=== PATIENT | female | born 1990 | race Caucasian/White ===

== ENCOUNTER → 2018-01-08 | Outpatient (CLI) | payer BC ==
[~2018-01-08] MED LIST: ACHD5005 PO; CODE-54 PO; IBUP-1773 PO; LABE200T3 PO; NITR-65 PO; PREN1COM PO
--- NOTE | 2018-01-08 15:27 | Diagnostic Imaging Report ---
CLINICAL INDICATION: Patient with left-sided sciatica pain. Patient woke up long time ago with back spasm. Repetitive bending. EXAM: X-ray of the lumbar spine, three views. COMPARISON: X-ray of the lumbar spine dated 06/09/2009. FINDINGS: There is no acute lumbar spine fracture or dislocation. Intervertebral disc heights are well maintained. There are no significant degenerative changes seen. The sacroiliac joints, sacrum, and visualized portions of the pelvis are unremarkable. IMPRESSION: Unremarkable x-ray of the lumbar spine. Dictated by: Dictated on workstation # [id number]
== END ==
LOC: RAD 14:17
PROVIDERS: ATTEND Nurse Practitioner Family
DX: M54.42 Lumbago with sciatica, left side (principal)
CPT/HCPCS: 72100

== ENCOUNTER 2018-09-01 16:47 | Emergency (ER) | payer BC ==
[~2018-09-01] VITALS: Ht 157.5 cm; Wt 59.9 kg
[~2018-09-01 16:47] MED LIST changes: -LABE200T3 PO; +LABE200T7 PO
[2018-09-01 17:25] VITALS: BP 142/93
[2018-09-01] MEDS ORDERED: PROCHLORPERAZINE 10 MG/2ML INJ (COMPAZINE) IV ONE (17:45)
[2018-09-01] MEDS ORDERED: diphenhydrAMINE 50 MG/ML INJ (BENADRYL) IVP ONE (17:45)
[2018-09-01] MEDS ORDERED: NS IV 1000 ML 1,000 ML IV SCH (17:45)
--- NOTE | 2018-09-01 17:59 | ED Headache ---
General Chief Complaint: Head/Cervical Problems Stated Complaint: 14 WKS PREG/MIGRAINE/VOMITING Source: patient Exam Limitations: no limitations History of Present Illness Date Seen by Provider: Sep 01, 2018 Time Seen by Provider: 17:55 Initial Comments To ER with reports of being 14 weeks , headache and vomiting. She does have a history of migraines and typically vomits with these. Timing/Duration: other (3 days) Severity/Quality: moderate Location: global Prior Headaches/Recent Trauma: occasional headaches Associated Symptoms: No confusion, No fever/chills Allergies and Home Medications Allergies Coded Allergies: No Known Drug Allergies (Unverified , 10/22/14) Home Medications Hydrocodone Bit/Acetaminophen 1 Each Tablet, 1-2 TAB PO Q6H PRN for PAIN Prescribed by: MYKEL RODRIGUEZ on 05/09/15 1018 Ibuprofen 600 Mg Tablet, 600 MG PO Q6H Prescribed by: MYKEL RODRIGUEZ on 05/09/15 1018 Labetalol HCl 200 Mg Tablet, 200 MG PO BID Prescribed by: MYKEL RODRIGUEZ on 05/09/15 1018 Prenat Vit Comb.10/Iron/Fa/Dha 1 Each Combo..pkg, 1 TAB PO DAILY, (Reported) Patient Home Medication List Home Medication List Reviewed: Yes Review of Systems Review of Systems Constitutional: see HPI Eyes: No Symptoms Reported Ears, Nose, Mouth, Throat: no symptoms reported Respiratory: no symptoms reported Cardiovascular: no symptoms reported Genitourinary: no symptoms reported Musculoskeletal: no symptoms reported Skin: no symptoms reported Psychiatric/Neurological: Headache Past Vgjrsqf-Upllsr-Ipidyr Hx Patient Social History Recent Foreign Travel: No Contact w/Someone Who Travel: No Immunizations Up To Date Date of Influenza Vaccine: Jun 06, 2014 Past Medical History Reproductive Disorders: No Sexually Transmitted Disease: No HIV/AIDS: No Kidney Stones Adverse Reaction/Blood Tranf: No Family Medical History FH: lung cancer paternal grandfather Jamie thyroiditis paternal grandmother No Pertinent Family Hx Physical Exam Vital Signs Capillary Refill : Height, Weight, BMI Height: 5'2.00" Weight: 250lbs. oz. 113.602176ec; BMI Method:Stated General Appearance: WD/WN, no apparent distress HEENT: PERRL/EOMI, normal ENT inspection, TMs normal Neck: non-tender, full range of motion Cardiovascular: regular rate, rhythm, no murmur Respiratory: no respiratory distress, no accessory muscle use Gastrointestinal: normal bowel sounds, non tender Extremities: normal range of motion, non-tender Psychiatric: alert, oriented x 3 Crainal Nerves: normal hearing, normal speech, PERRL Skin: normal color, warm/dry Progress/Results/Core Measures Results/Orders My Orders Orders - JAYDEN TAVERA APRN Iv Heplock-Insert (Order) (09/01/18 17:41) Diphenhydramine Injection (Benadryl Inje (09/01/18 17:45) Prochlorperazine Injection (Compazine In (09/01/18 17:45) Ns Iv 1000 Ml (Sodium Chloride 0.9%) (09/01/18 17:45) Medications Given in ED Current Medications Medications Dose Ordered Sig/Rosa Route Start Time Stop Time Status Last Admin Dose Admin Diphenhydramine HCl 25 mg ONCE ONCE IVP 09/01/18 17:45 09/01/18 17:46 DC 09/01/18 17:50 25 MG Prochlorperazine Edisylate 5 mg ONCE ONCE IV 09/01/18 17:45 09/01/18 17:46 DC 09/01/18 17:50 5 MG Departure Communication (Admissions) 1812- patient is not very agitated stating that she wants her IV out because she is sick of it and she wants to leave. Impression Primary Impression: Left against medical advice Additional Impression: Headache Disposition: 07 AGAINST MEDICAL ADVICE Condition: Against Medical Advice Departure-Patient Inst. Referrals: MYKEL RODRIGUEZ DO (PCP) Primary Care Physician LUMA JAUREGUI MD (Family) Primary Care Physician JAYDEN TAVERA APRN Sep 01, 2018 17:59
--- NOTE | 2018-09-01 18:15 | NUR ---
Answered pt's call light. Pt very agitated and stated pt just wanted IV out of arm and wanted to leave. Demar Britt notified.
== END 2018-09-01 18:14 | disposition left against medical advice (07) ==
LOC: EDUNIT# 16:47 → ER 16:48
DX: O26.892 Other specified pregnancy related conditions, second trimester (principal); R51 Headache; Z3A.14 14 weeks gestation of pregnancy; Z87.442 Personal history of urinary calculi; Z86.69 Personal history of other diseases of the nervous system and sense organs; Z80.1 Family history of malignant neoplasm of trachea, bronchus and lung
CPT/HCPCS: 96374; 96375; 99281

== ENCOUNTER → 2018-10-08 | Outpatient (CLI) | payer BC ==
--- NOTE | 2018-10-08 13:59 | Diagnostic Imaging Report ---
INDICATION: survey. TECHNIQUE: Multiple real-time grayscale images were obtained over the gravid uterus. COMPARISON: None. FINDINGS: There is a single live fetus in a transverse presentation, head to maternal right. Placenta is posterior. Amniotic fluid volume is normal. heart rate was recorded at 144 beats per minute. Cervical length is 6.3 cm. survey demonstrates kidneys, bladder and stomach to be unremarkable. The brain is unremarkable. There is a four-chamber heart. There is a three-vessel cord with normal insertion. Visualized spine is unremarkable. Biometrical measurements are as follows: Biparietal 4.39 cm, age 19 weeks 2 days. Head circumference 17.29 cm, age 19 weeks 6 days. Abdominal circumference 14.70 cm, age 20 weeks 0 days. Femur length 3.38 cm, age 20 weeks 5 days. Sonographic estimate age: 20 weeks 0 days. Sonographic estimated date of delivery: 02/25/2019. Estimated Weight: 338 gm (+/- 49 gm). LMP percentile: 65%. heart rate: 144 beats per minute. number: 1 of 1. IMPRESSION: Single live IUP 20 weeks 0 days gestational age. Estimated date of confinement sonographically is 02/25/2019. Dictated by: Dictated on workstation # [id number]
== END ==
LOC: RAD 12:02
PROVIDERS: ATTEND Obstetrics & Gynecology
DX: Z36.89 Encounter for other specified antenatal screening (principal); Z3A.20 20 weeks gestation of pregnancy
CPT/HCPCS: 76805

== ENCOUNTER 2018-12-20 11:51 | Emergency (ER) | payer BC ==
[~2018-12-20] VITALS: Ht 157.5 cm; Wt 104.3 kg
[2018-12-20] MEDS ORDERED: POTA20TA8 (12:19)
[2018-12-20] MEDS ORDERED: BUTA1CAP41 (12:19)
[2018-12-20] MEDS ORDERED: OMEP20CA12 PO (12:20)
[2018-12-20] MEDS ORDERED: LACTATED RINGERS 1,000 ML IV ONE (12:21)
[2018-12-20 12:27] LABS: BASOPHILS # (AUTO) 0.1 10^3/uL (0.0-0.1); BASOPHILS % (AUTO) 0 % (0-10); EOSINOPHILS # (AUTO) 0.4 10^3/uL (0.0-0.3); EOSINOPHILS % (AUTO) 3 % (0-10); HEMATOCRIT 41 % (35-52); HEMOGLOBIN 14.4 G/DL (11.5-16.0); LYMPHOCYTES # (AUTO) 3.2 X 10^3 (1.0-4.0); LYMPHOCYTES % (AUTO) 22 % (12-44); MEAN CORPUSCULAR HEMOGLOBIN 31 PG (25-34); MEAN CORPUSCULAR HGB CONC 35 G/DL (32-36); MEAN CORPUSCULAR VOLUME 89 FL (80-99); MEAN PLATELET VOLUME 10.6 FL (7.4-10.4); MONOCYTES # (AUTO) 0.9 X 10^3 (0.0-1.0); MONOCYTES % (AUTO) 6 % (0-12); NEUTROPHILS # (AUTO) 9.9 X 10^3 (1.8-7.8); NEUTROPHILS % (AUTO) 69 % (42-75); PLATELET COUNT 296 10^3/uL (130-400); RED CELL DISTRIBUTION WIDTH 13.4 % (10.0-14.5); WHITE BLOOD COUNT 14.4 10^3/uL (4.3-11.0)
[2018-12-20] MEDS ORDERED: ONDANSETRON 4 MG/2 ML (SDV) Z0FRAN IVP ONE (12:30)
[2018-12-20 12:37] LABS: ALANINE AMINOTRANSFERASE 12 U/L (0-55); ALBUMIN 3.7 GM/DL (3.2-4.5); ALKALINE PHOSPHATASE 68 U/L (40-136); BILIRUBIN,TOTAL 0.4 MG/DL (0.1-1.0); BUN/CREATININE RATIO 9; CALCIUM 9.8 MG/DL (8.5-10.1); CARBON DIOXIDE 20 MMOL/L (21-32); CHLORIDE 107 MMOL/L (98-107); CREATININE SERUM 0.54 MG/DL (0.60-1.30); GFR ESTIMATED > 60; GLUCOSE 73 MG/DL (70-105); MAGNESIUM 1.9 MG/DL (1.8-2.4); POTASSIUM 4.1 MMOL/L (3.6-5.0); SODIUM 136 MMOL/L (135-145); TOTAL PROTEIN 6.7 GM/DL (6.4-8.2)
[2018-12-20 12:44] LABS: BILIRUBIN,URINE NEGATIVE (NEGATIVE); CLARITY,URINE CLEAR; COLOR,URINE YELLOW; GLUCOSE, URINE (UA) NEGATIVE (NEGATIVE); KETONES,URINE NEGATIVE (NEGATIVE); LEUKOCYTE ESTERASE ,URINE 1+ (NEGATIVE); NITRITE,URINE NEGATIVE (NEGATIVE); PH,URINE 7 (5-9); PROTEIN,URINE 2+ (NEGATIVE); UROBILINOGEN,URINE NORMAL (NORMAL)
[2018-12-20 12:55] LABS: BACTERIA,URINE TRACE /HPF; WBC,URINE 0-2 /HPF
[2018-12-20 13:05] LABS: BASOPHILS % (MANUAL) 1 %; EOSINOPHILS % (MANUAL) 1 %; LYMPHOCYTES % (MANUAL) 12 %; MONOCYTES % (MANUAL) 3 %; NEUTROPHILS % (MANUAL) 71 %; RBC MORPH NORMAL; REACTIVE LYMPHOCYTES 12 %
--- NOTE | 2018-12-20 14:13 | ED General ---
General Chief Complaint: Dizziness/Syncope Stated Complaint: SYNCOPE Nursing Triage Note: PT PRESENTS TO ED WITH COMPLAINTS OF NEAR SYNCOPAL EPISODE AT WORK THIS AFTERNOON. PT STATES SHE HAD AN EPISODE OF DIAHRREA AND BECAME DIAPHORETIC AND NAUSEATED. PT STATES SHE HAS HAD SIMILAR EPISODES WHEN HER POTASSIUM GETS LOW. PT IS ON PRESCRIPTION POTASSIUM PILLS. PT DENIES LOC BUT REPORTS FEELING FATIGUED. PT IS APROX 30 WEEKS PREG. Nursing Sepsis Screen: No Definite Risk Source of Information: Patient Exam Limitations: No Limitations History of Present Illness Date Seen by Provider: Dec 20, 2018 Time Seen by Provider: 12:20 Initial Comments This 28-year-old young lady at approximately 30 weeks gestational age presents to the emergency room after having a near syncopal episode at work. The episode started with abdominal discomfort and diarrhea as well as nausea. She then became diaphoretic and lightheaded. Near-syncope followed. She denies loss of consciousness. She reports having similar episodes in the past related to hypokalemia. She is presently taking daily potassium supplements. Her service liaison representative is Dr. Rodriguez. Allergies and Home Medications Allergies Coded Allergies: No Known Drug Allergies (Unverified , 10/22/14) Home Medications Prenat Vit Comb.10/Iron/Fa/Dha 1 Each Combo..pkg, 1 TAB PO DAILY, (Reported) Patient Home Medication List Home Medication List Reviewed: Yes Review of Systems Review of Systems Constitutional: no symptoms reported EENTM: no symptoms reported Respiratory: no symptoms reported Cardiovascular: see HPI Gastrointestinal: see HPI Genitourinary: see HPI : Yes Musculoskeletal: no symptoms reported Skin: no symptoms reported Hematologic/Lymphatic: See HPI Immunological/Allergic: no symptoms reported Past Qafgzuw-Rrawfl-Mhcsru Hx Past Med/Social Hx: Reviewed and Corrections made Patient Social History Alcohol Use: Denies Use Recreational Drug Use: No Smoking Status: Never a Smoker Recent Foreign Travel: No Contact w/Someone Who Travel: No Recent Infectious Disease Expo: No Physical Abuse: No Sexual Abuse: No Mistreated: No Fear: No Immunizations Up To Date Date of Influenza Vaccine: Jun 06, 2014 Past Medical History Surgeries: Yes Section Respiratory: No Cardiac: No Neurological: No Reproductive Disorders: No Sexually Transmitted Disease: No HIV/AIDS: No Genitourinary: Yes Kidney Stones Gastrointestinal: Yes Gastroesophageal Reflux Musculoskeletal: No Endocrine: Yes (Hypokalemia) Cancer: No Psychosocial: No Integumentary: No Blood Disorders: No (LOW POTASSIUM) Adverse Reaction/Blood Tranf: No Family Medical History FH: lung cancer paternal grandfather Jamie thyroiditis paternal grandmother No Pertinent Family Hx Physical Exam Vital Signs Vital Signs - First Documented 12/20/18 12:09 Temp 96.5 Pulse 96 Resp 20 B/P (MAP) 129/90 (103) Pulse Ox 96 O2 Delivery Room Air Capillary Refill : Less Than 3 Seconds Height, Weight, BMI Height: 5'2.00" Weight: 230lbs. oz. 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 Norm as Tested Skin: Normal Color, Warm/Dry Progress/Results/Core Measures Suspected Sepsis Recent Fever Within 48 Hours: No Infection Criteria Present: None New/Unexplained Altered Menta: No Sepsis Screen: No Definite Risk SIRS Temperature:96.5 Pulse: 96 Respiratory Rate: 20 Laboratory Tests 12/20/18 12:00: White Blood Count 14.4H Blood Pressure 129 /90 Mean: 103 Laboratory Tests 12/20/18 12:00: Creatinine 0.54L, Platelet Count 296, Total Bilirubin 0.4 Results/Orders Lab Results Laboratory Tests Test 12/20/18 12:00 12/20/18 12:01 12/20/18 12:28 Range/Units White Blood Count 14.4 H 4.3-11.0 10^3/uL Red Blood Count 4.63 4.35-5.85 10^6/uL Hemoglobin 14.4 11.5-16.0 G/DL Hematocrit 41 35-52 % Mean Corpuscular Volume 89 80-99 FL Mean Corpuscular Hemoglobin 31 25-34 PG Mean Corpuscular Hemoglobin Concent 35 32-36 G/DL Red Cell Distribution Width 13.4 10.0-14.5 % Platelet Count 296 130-400 10^3/uL Mean Platelet Volume 10.6 H 7.4-10.4 FL Neutrophils (%) (Auto) 69 42-75 % Lymphocytes (%) (Auto) 22 12-44 % Monocytes (%) (Auto) 6 0-12 % Eosinophils (%) (Auto) 3 0-10 % Basophils (%) (Auto) 0 0-10 % Neutrophils # (Auto) 9.9 H 1.8-7.8 X 10^3 Lymphocytes # (Auto) 3.2 1.0-4.0 X 10^3 Monocytes # (Auto) 0.9 0.0-1.0 X 10^3 Eosinophils # (Auto) 0.4 H 0.0-0.3 10^3/uL Basophils # (Auto) 0.1 0.0-0.1 10^3/uL Neutrophils % (Manual) 71 % Lymphocytes % (Manual) 12 % Monocytes % (Manual) 3 % Eosinophils % (Manual) 1 % Basophils % (Manual) 1 % Reactive Lymphocytes 12 % Blood Morphology Comment NORMAL Sodium Level 136 135-145 MMOL/L Potassium Level 4.1 3.6-5.0 MMOL/L Chloride Level 107 98-107 MMOL/L Carbon Dioxide Level 20 L 21-32 MMOL/L Anion Gap 9 5-14 MMOL/L Blood Urea Nitrogen 5 L 7-18 MG/DL Creatinine 0.54 L 0.60-1.30 MG/DL Estimat Glomerular Filtration Rate > 60 BUN/Creatinine Ratio 9 Glucose Level 73 70-105 MG/DL Calcium Level 9.8 8.5-10.1 MG/DL Corrected Calcium 10.0 8.5-10.1 MG/DL Magnesium Level 1.9 1.8-2.4 MG/DL Total Bilirubin 0.4 0.1-1.0 MG/DL Aspartate Amino Transf (AST/SGOT) 20 5-34 U/L Alanine Aminotransferase (ALT/SGPT) 12 0-55 U/L Alkaline Phosphatase 68 40-136 U/L C-Reactive Protein High Sensitivity 0.60 H 0.00-0.50 MG/DL Total Protein 6.7 6.4-8.2 GM/DL Albumin 3.7 3.2-4.5 GM/DL Glucometer 76 70-110 MG/DL Urine Color YELLOW Urine Clarity CLEAR Urine pH 7 5-9 Urine Specific [place] 1.010 L 1.016-1.022 Urine Protein 2+ H NEGATIVE Urine Glucose (UA) NEGATIVE NEGATIVE Urine Ketones NEGATIVE NEGATIVE Urine Nitrite NEGATIVE NEGATIVE Urine Bilirubin NEGATIVE NEGATIVE Urine Urobilinogen NORMAL NORMAL MG/DL Urine Leukocyte Esterase 1+ H NEGATIVE Urine RBC (Auto) NEGATIVE NEGATIVE Urine RBC NONE /HPF Urine WBC 0-2 /HPF Urine Squamous Epithelial Cells 2-5 /HPF Urine Crystals NONE /LPF Urine Bacteria TRACE /HPF Urine Casts NONE /LPF Urine Mucus NEGATIVE /LPF Urine Culture Indicated NO My Orders Orders - MORE HIGHTOWER MD Cbc With Automated Diff (12/20/18 12:21) Comprehensive Metabolic Panel (12/20/18 12:21) Magnesium (12/20/18 12:21) Ua Culture If Indicated (12/20/18 12:21) Ed Iv/Invasive Line Start (12/20/18 12:21) Lactated Ringers (Lr 1000 Ml Iv Solution (12/20/18 12:21) Ondansetron Injection (Zofran Injectio (12/20/18 12:30) General/Regular (12/20/18 Lunch) Manual Differential (12/20/18 12:00) Hs C Reactive Protein (12/20/18 13:06) Medications Given in ED Current Medications Medications Dose Ordered Sig/Rosa Route Start Time Stop Time Status Last Admin Dose Admin Lactated Ringer's 1,000 ml @ 0 mls/hr Q0M ONCE IV 12/20/18 12:21 12/20/18 12:22 DC 12/20/18 12:39 0 MLS/HR Ondansetron HCl 4 mg ONCE ONCE IVP 12/20/18 12:30 12/20/18 12:31 DC 12/20/18 12:36 4 MG Vital Signs/I&O 12/20/18 12/20/18 12:09 14:22 Temp 96.5 97.9 Pulse 96 92 Resp 20 20 B/P (MAP) 129/90 (103) 119/75 (90) Pulse Ox 96 98 O2 Delivery Room Air Capillary Refill : Less Than 3 Seconds Blood Pressure Mean: 103 Point of Care Testing Finger Stick Blood Glucose: 151 Progress Note : Progress Note Patient's blood sugar was marginal in the 70s. She was given orange juice to drink. She was hydrated with 500 mL normal saline by EMS followed by 1 L of LR in the emergency room. Lab work was grossly unremarkable except for leukocytosis. CRP however was low. She was feeling well and was dismissed home. I'm suspicious her near syncopal episode may have been from a vasovagal response triggered by the diarrhea. Departure Impression Primary Impression: Diarrhea Qualified Codes: R19.7 - Diarrhea, unspecified Additional Impressions: Lightheadedness Nausea alone Disposition: 01 HOME, SELF-CARE Condition: Improved Departure-Patient Inst. Decision time for Depature: 14:00 Referrals: NO,LOCAL PHYSICIAN (PCP/Family) Primary Care Physician Patient Instructions: Vasovagal Response Add. Discharge Instructions: Drink plenty of clear liquids. Follow-up with Dr. Rodriguez at your next scheduled appointment and discuss your episodes of diarrhea and lightheadedness. The lightheadedness and shortness of breath that occurred after the diarrhea may have been a vasovagal response. Please read the attached handout. Return to care if you have worsening symptoms. Eat a well-balanced diet with frequent healthy snacks and stay well-hydrated. All discharge instructions reviewed with patient and/or family. Voiced understanding. Copy Copies To 1: MYKEL RODRIGUEZ JOSHUA T MD Dec 20, 2018 14:13
[2018-12-20 14:22] VITALS: BP 119/75
== END 2018-12-20 14:21 | disposition home or self-care (01) ==
LOC: ER 11:51
DX: O26.893 Other specified pregnancy related conditions, third trimester (principal); R19.7 Diarrhea, unspecified; R42 Dizziness and giddiness; R11.0 Nausea; O99.613 Diseases of the digestive system complicating pregnancy, third trimester; K21.9 Gastro-esophageal reflux disease without esophagitis; Z3A.30 30 weeks gestation of pregnancy; Z98.890 Other specified postprocedural states; Z87.442 Personal history of urinary calculi; Z80.1 Family history of malignant neoplasm of trachea, bronchus and lung
CPT/HCPCS: 36415; 80053; 81000; 82962; 83735; 85007; 85027; 86141

== ENCOUNTER 2019-02-11 11:59 | Outpatient (CLI) | payer BC ==
[~2019-02-11] VITALS: Ht 157.5 cm; Wt 109.0 kg
[~2019-02-11 11:59] MED LIST changes: +BUTA1CAP41; +OMEP20CA12 PO; +POTA20TA8 PO
[2019-02-11] MEDS ORDERED: BUTA1CAP41 PO (12:11)
[2019-02-11] MEDS ORDERED: PREN1TAB79 PO (12:11)
[2019-02-11 12:15] VITALS: BP 129/84
== END 2019-02-11 12:35 | disposition home or self-care (01) ==
LOC: PREOP 11:59
PROVIDERS: ATTEND Obstetrics & Gynecology
DX: Z01.818 Encounter for other preprocedural examination (principal)
CPT/HCPCS: 87081

== ENCOUNTER 2019-02-19 06:00 | Inpatient (IN) | payer BC ==
[~2019-02-19] VITALS: Ht 157.5 cm; Wt 110.3 kg
[2019-02-19] VITALS (14 sets, daily range): BP systolic 102–205; BP diastolic 66–96
[~2019-02-19 06:00] MED LIST changes: +BUTA1CAP41 PO; +CITRIC ACID/SOB CIT (BICITRA) 30 ML UDC ONE; +FAMOTIDINE 20MG/2ML IV (PEPCID) ONE; +LACTATED RINGERS 1,000 ML IV ONE; +METOCLOPRAMIDE INJ 10 MG/2 ML (REGLAN) ONE; +PREN1TAB79 PO
--- NOTE | 2019-02-19 06:01 | NUR ---
LINCOLN MCCRACKEN presented to unit via ambulation from home, accompanied by , with c/o PREVIOUS . LINCOLN MCCRACKEN weighed, gowned, voided, and to bed. EFHM and TOCO applied, VS taken. LINCOLN MCCRACKEN oriented to bed controls, call light, TV, heat, and A/C controls.
[2019-02-19] MEDS ORDERED: CATHETER FLUSH 10 ML SYR IV PRN (06:15)
[2019-02-19] MEDS ORDERED: FAMOTIDINE 20MG/2ML IV (PEPCID) IV ONE (06:15)
[2019-02-19] MEDS ORDERED: CITRIC ACID/SOB CIT (BICITRA) 30 ML UDC PO ONE (06:15)
[2019-02-19] MEDS ORDERED: METOCLOPRAMIDE INJ 10 MG/2 ML (REGLAN) IV ONE (06:15)
[2019-02-19] MEDS ORDERED: ceFAZolin INJECTION 1,000 MG in WATER (STERILE) FOR INJECTION 10 ML IV ONE (06:15)
[2019-02-19 06:43] LABS: BASOPHILS % (AUTO) 0 % (0-10); EOSINOPHILS # (AUTO) 0.2 10^3/uL (0.0-0.3); EOSINOPHILS % (AUTO) 2 % (0-10); HEMATOCRIT 35 % (35-52); HEMOGLOBIN 11.9 G/DL (11.5-16.0); LYMPHOCYTES # (AUTO) 1.9 X 10^3 (1.0-4.0); LYMPHOCYTES % (AUTO) 18 % (12-44); MEAN CORPUSCULAR HEMOGLOBIN 30 PG (25-34); MEAN CORPUSCULAR HGB CONC 34 G/DL (32-36); MEAN CORPUSCULAR VOLUME 88 FL (80-99); MEAN PLATELET VOLUME 10.1 FL (7.4-10.4); MONOCYTES # (AUTO) 0.9 X 10^3 (0.0-1.0); MONOCYTES % (AUTO) 9 % (0-12); NEUTROPHILS # (AUTO) 7.2 X 10^3 (1.8-7.8); NEUTROPHILS % (AUTO) 70 % (42-75); PLATELET COUNT 290 10^3/uL (130-400); RED CELL DISTRIBUTION WIDTH 14.1 % (10.0-14.5); WHITE BLOOD COUNT 10.3 10^3/uL (4.3-11.0)
[2019-02-19 06:57] LABS: BILIRUBIN,URINE NEGATIVE (NEGATIVE); CLARITY,URINE CLEAR; COLOR,URINE YELLOW; GLUCOSE, URINE (UA) NEGATIVE (NEGATIVE); KETONES,URINE NEGATIVE (NEGATIVE); LEUKOCYTE ESTERASE ,URINE NEGATIVE (NEGATIVE); NITRITE,URINE NEGATIVE (NEGATIVE); PH,URINE 7 (5-9); PROTEIN,URINE NEGATIVE (NEGATIVE); UROBILINOGEN,URINE NORMAL (NORMAL)
[2019-02-19 07:11] LABS: AMORPHOUS SEDIMENT,UR FEW AMOR PHOSPHATE /LPF; BACTERIA,URINE FEW /HPF; RBC,URINE RARE /HPF; WBC,URINE 0-2 /HPF
[2019-02-19] MEDS ORDERED: KETAMINE/NaCl 50 MG/5 ML SYRINGE ONE (07:12)
[2019-02-19] MEDS ORDERED: fentaNYL INJECTION 100 MCG/2 ML AMP ONE (07:12)
[2019-02-19] MEDS ORDERED: ceFAZolin INJECTION 1,000 MG ONE (07:14)
[2019-02-19] MEDS ORDERED: WATER (STERILE) FOR INJECTION 10 ML ONE (07:14)
[2019-02-19] MEDS ORDERED: BUPIVACAINE SPINAL 0.75% (SENSORCAINE) 2 ML AMP ONE (07:16)
[2019-02-19] MEDS ORDERED: LIDOCAINE PF 2% 5 ML (XYLOCAINE) VIAL ONE (07:16)
--- NOTE | 2019-02-19 07:17 | Progress Note-Pre Operative ---
Pre-Operative Progress Note H&P Reviewed The H&P was reviewed, patient examined and no changes noted. Date Seen by Provider: Feb 19, 2019 Time Seen by Provider: 07:15 Date H&P Reviewed: Feb 19, 2019 Time H&P Reviewed: 06:30 Pre-Operative Diagnosis: previous section, 39 weeks MYKEL RODRIGUEZ DO Feb 19, 2019 07:17
[2019-02-19] MEDS ORDERED: LACTATED RINGERS 1,000 ML IV PRN (07:50)
[2019-02-19] MEDS ORDERED: KETOROLAC 30 MG/ML VIAL ONE (07:58)
[2019-02-19] MEDS ORDERED: PHENYLEPHRINE 100 MCG/ML 10 ML (ANESTHESIA) SYR ONE (08:08)
[2019-02-19] MEDS ORDERED: OXYTOCIN/NORMAL SALINE 500 ML IV ONE ×2 (08:08)
[2019-02-19] MEDS ORDERED: OXYTOCIN/NORMAL SALINE 500 ML IV SCH (08:22)
--- NOTE | 2019-02-19 08:27 | Cesarean Section Operative ---
Procedure Procedure Note Pre-operative Diagnosis: Elli Boo is a 28 /Para 2 /1 ,Gestational Age 39 weeks with history of previous section, for repeat section. She is arline on admission Post-operative Diagnosis: same , omental adhesions Procedure: Repeat low transverse section Physician: MYKEL RODRIGUEZ Estimated blood loss: 500 mL Disposition: [] Findings: Viable female infant, Apgars 8/9, weight 7#10 ounces, intact placenta, 3vc, normal appearing uterus, tubes, and ovaries. Indications:Elli Boo is a 28 /Para 2 /1 ,Gestational Age 39 weeks with history of previous section, for repeat section. She is arline on admission Procedure Details: The patient was seen in pre-op and the procedure was discussed with the patient in full, including the risks, benefits, and alternatives. All questions were answered. The patient was taken to the operating room and a time out was performed, verifying patient and procedure. After spinal anesthesia was placed by our anesthesia colleagues, the patient was placed in the dorsal supine with leftward tilt for uterine displacement.~ Her abdomen was then prepped and draped in the typical sterile fashion. A Pfannenstiel skin incision was made using a scalpel and carried down through the underlying fascia. The fascia was incised in the midline and tented up using Alyce clamps. On both the inferior and superior fascia side the rectus muscle was dissected off bluntly and sharply using Smith scissors. The peritoneum was identified and entered bluntly in the midline. This was then stretched laterally using manual strength. After entering the abdominal cavity and confirming lack of intraperitoneal adhesions, a large Andrea retractor was placed and the lower uterine segment was visualized. A bladder flap was created with the use of Metzenbaum scissors.~ A scalpel was utilized to make a low transverse uterine incision. Amniotomy was performed with an Allis clamp with return of clear fluid. The 's head was grasped and brought to the level of the incision. Fundal pressure was applied and was delivered without difficulty. Mouth and nares were suctioned with bulb suction. After the umbilical cord was clamped and cut, the infant was handed off to the pediatric staff. A sample of cord blood was then obtained. The placenta was delivered intact via uterine massage. The uterus was exteriorized and cleared of all clots and debris. The uterine incision was closed using 0 Vicryl in a running locked fashion. A second imbricated layer was placed using 0 Vicryl in a running fashion as well. The uterus was flexed forward and the posterior rectouterine space was inspected and cleared of all clots and debris. Again the hysterotomy site was examined and hemostasis was observed. The bilateral tubes and ovaries appeared normal. The uterus was placed back into the abdominal cavity and abdominal gutters were cleared of all clots and debris. A final check of the uterine incision showed it to be hemostatic. The peritoneum was closed using 3-0 Vicryl in a running fashion. The fascia was closed with 0 Vicryl in a running fashion. The subcutaneous space was hemostatic, and irrigated. The subcutaneous space was closed with 3-0 Vicryl in several single interrupted stitches. The skin was then closed using 4-0 Monocryl in a running subcuticular fashion. The skin edges were reapproximated together and were hemostatic. A pressure dressing was applied. All sponge, lap and needle counts were correct at the end of the procedure per nursing. Vitals - Labs Vital Signs - I&O Vital Signs Date Time Temp Pulse Resp B/P (MAP) Pulse Ox O2 Delivery O2 Flow Rate FiO2 02/19/19 07:15 99.2 106 20 146/78 (100) 02/19/19 07:05 106 20 138/74 (95) 02/19/19 06:39 100 20 146/81 (102) 02/19/19 06:14 98.3 102 20 205/96 (132) Labs Laboratory Tests 02/19/19 06:30: White Blood Count 10.3, Red Blood Count 3.94L, Hemoglobin 11.9, Hematocrit 35, Mean Corpuscular Volume 88, Mean Corpuscular Hemoglobin 30, Mean Corpuscular Hemoglobin Concent 34, Red Cell Distribution Width 14.1, Platelet Count 290, Mean Platelet Volume 10.1, Neutrophils (%) (Auto) 70, Lymphocytes (%) (Auto) 18, Monocytes (%) (Auto) 9, Eosinophils (%) (Auto) 2, Basophils (%) (Auto) 0, Neutrophils # (Auto) 7.2, Lymphocytes # (Auto) 1.9, Monocytes # (Auto) 0.9, Eosinophils # (Auto) 0.2, Basophils # (Auto) 0.0 02/19/19 06:40: Urine Color YELLOW, Urine Clarity CLEAR, Urine pH 7, Urine Specific [place] 1.015L, Urine Protein NEGATIVE, Urine Glucose (UA) NEGATIVE, Urine Ketones NEGATIVE, Urine Nitrite NEGATIVE, Urine Bilirubin NEGATIVE, Urine Urobilinogen NORMAL, Urine Leukocyte Esterase NEGATIVE, Urine RBC (Auto) NEGATIVE, Urine RBC RARE, Urine WBC 0-2, Urine Squamous Epithelial Cells 2-5, Urine Crystals PRESENTH, Urine Amorphous Sediment FEW LANDEN PHOSPHATEH, Urine Bacteria FEWH, Urine Casts NONE, Urine Mucus NEGATIVE, Urine Culture Indicated NO MYKEL RODRIGUEZ DO Feb 19, 2019 08:27
[2019-02-19] MEDS ORDERED: MEASLES,MUMPS,RUBELLA 1 EA INJ SC SCH (08:30)
[2019-02-19] MEDS ORDERED: ONDANSETRON 4 MG/2 ML (SDV) Z0FRAN IVP PRN (08:30)
[2019-02-19] MEDS ORDERED: TETANUS,DIPTH,PERTUSS P/F (BOOSTRIX) 0.5 ML VIAL IM SCH (08:30)
[2019-02-19] MEDS ORDERED: BUPIVACAINE 0.5% 30 ML (SENSORCAINE) VIAL ONE (08:54)
--- NOTE | 2019-02-19 09:40 | NUR ---
Pt transferred to room 313 via bed. Pt and family oriented to room and call light. packet and room service explained. SCD's on and activated. Instructed pt to call for assistance when ready to ambulate. Pt denies questions or concerns at this time.
[2019-02-19] MEDS: FLUoxetine HCL 20 MG (PROzac) CAP PO SCH (11:58)
[2019-02-19] MEDS: ACETAMINOPHEN 500 MG TAB (TYLENOL) PO SCH ×2 (11:59→20:47)
[2019-02-19] MEDS ORDERED: CATHETER FLUSH 10 ML SYR IV SCH (14:00)
--- NOTE | 2019-02-19 15:30 | NUR ---
Pt assisted to bathroom per A. Back. +void without difficulty. Pt assisted back to bed, SCD's on and readjusted.
[2019-02-19] MEDS: KETOROLAC 30 MG/ML VIAL IV SCH (15:42)
--- NOTE | 2019-02-19 20:47 | NUR ---
pt needing assistance to the bathroom. pt very tearful and c/o increase in pain. pain meds given. standby assistance to bathroom. positive void. pt assisted back to bed.
[2019-02-19] MEDS: DOCUSATE SODIUM 100 MG (COLACE) CAP PO SCH (20:48)
[2019-02-19] MEDS: POLYETHYLENE GLYCOL 17 GM (MIRALAX) PACK PO SCH (20:51)
--- NOTE | 2019-02-20 | NUR ---
abdominal binder placed on pt. pt reports +comfort from binder. will continue to monitor.
[2019-02-20] MEDS: KETOROLAC 30 MG/ML VIAL IV SCH ×3 (00:06→12:22)
[2019-02-20 04:00] VITALS: BP 124/64
[2019-02-20] MEDS: ACETAMINOPHEN 500 MG TAB (TYLENOL) PO SCH ×3 (04:56→22:46)
[2019-02-20] MEDS ORDERED: MILK OF MAGNESIA 400 MG/5 ML 30 ML UDC PO PRN (05:00)
--- NOTE | 2019-02-20 05:35 | NUR ---
ABDOMINAL DRSG REMOVED. DERMABOND INTACT. NO BLEEDING OR LEAKING NOTED.
[2019-02-20 06:47] LABS: BASOPHILS % (AUTO) 0 % (0-10); EOSINOPHILS # (AUTO) 0.2 10^3/uL (0.0-0.3); EOSINOPHILS % (AUTO) 2 % (0-10); HEMATOCRIT 32 % (35-52); HEMOGLOBIN 10.7 G/DL (11.5-16.0); LYMPHOCYTES # (AUTO) 2.2 X 10^3 (1.0-4.0); LYMPHOCYTES % (AUTO) 20 % (12-44); MEAN CORPUSCULAR HEMOGLOBIN 30 PG (25-34); MEAN CORPUSCULAR HGB CONC 33 G/DL (32-36); MEAN CORPUSCULAR VOLUME 90 FL (80-99); MEAN PLATELET VOLUME 10.2 FL (7.4-10.4); MONOCYTES # (AUTO) 0.9 X 10^3 (0.0-1.0); MONOCYTES % (AUTO) 8 % (0-12); NEUTROPHILS # (AUTO) 7.6 X 10^3 (1.8-7.8); NEUTROPHILS % (AUTO) 70 % (42-75); PLATELET COUNT 249 10^3/uL (130-400); RED CELL DISTRIBUTION WIDTH 13.9 % (10.0-14.5); WHITE BLOOD COUNT 10.8 10^3/uL (4.3-11.0)
[2019-02-20 08:00] VITALS: BP 112/71
[2019-02-20] MEDS: FLUoxetine HCL 20 MG (PROzac) CAP PO SCH (09:00)
[2019-02-20] MEDS: DOCUSATE SODIUM 100 MG (COLACE) CAP PO SCH ×2 (09:00→20:40)
--- NOTE | 2019-02-20 09:00 | NUR ---
Fluff gauze over incision due to skin/skin contact.
[2019-02-20 12:00] VITALS: BP 125/86
[2019-02-20] MEDS: IBUPROFEN 600 MG (MOTRIN) TAB PO SCH ×3 (12:33→23:52)
--- NOTE | 2019-02-20 12:41 | Anesthesia-Regional Post-Op ---
Regional Patient Condition Mental Status: Alert, Oriented x3 Circulation: Same as Pre-Op Headache: Absent Sensation: Full Recovery Motor Block: Absent Post Op Complications Complications None Follow Up Care/Instructions Patient Instructions None needed. Anesthesia/Patient Condition Patient is doing well, no complaints, stable vital signs, no apparent adverse anesthesia problems. No complications reported per nursing. BUTCH FOUNTAIN CRNA Feb 20, 2019 12:41
--- NOTE | 2019-02-20 15:42 | NUR ---
up to shower. linens changed.
--- NOTE | 2019-02-20 15:45 | Postpartum Progress Note ---
Post Op Post-operative Day #[] Subjective: Patient is without complaints. Ambulating, voiding after harrison removed. Tolerating a regular diet without nausea or vomiting. Normal lochia. Pain is well controlled with oral pain medications. Passing flatus. [] feeding. [] Objective: [] Physical Exam: General - Alert and oriented, no apparent distress Abdomen - Soft, appropriately tender to palpation, non-distended, fundus firm at umbilicus Incision - clean, dry and intact; no erythema or induration, no drainage Extremities - no edema, negative Ashely's bilaterally [] Assessment: [] post-operative day # [], status post []. Recovering well, hemodynamically stable Acute blood loss anemia [] Plan: Routine post-operative care. Encourage breast feeding. Encourage ambulation. VTE prophylaxis: SCDs. Ferrous sulfate supplementation. Plan for discharge [] Vitals - Labs Vital Signs - I&O Vital Signs Date Time Temp Pulse Resp B/P (MAP) Pulse Ox O2 Delivery O2 Flow Rate FiO2 02/20/19 12:00 97.1 95 18 125/86 (99) 97 Room Air 02/20/19 08:00 98.6 81 14 112/71 (85) 98 Room Air 02/20/19 04:00 96.1 98 20 124/64 (84) 96 Room Air 02/19/19 23:55 96.7 65 18 138/82 (100) 98 Room Air 02/19/19 20:29 98.6 89 20 140/72 (94) 98 Room Air I & O 02/20/19 07:00 Intake Total 3110 ml Output Total 1750 ml Balance 1360 ml Labs Laboratory Tests 02/20/19 06:35: White Blood Count 10.8, Red Blood Count 3.55L, Hemoglobin 10.7L, Hematocrit 32L, Mean Corpuscular Volume 90, Mean Corpuscular Hemoglobin 30, Mean Corpuscular Hemoglobin Concent 33, Red Cell Distribution Width 13.9, Platelet Count 249, Mean Platelet Volume 10.2, Neutrophils (%) (Auto) 70, Lymphocytes (%) (Auto) 20, Monocytes (%) (Auto) 8, Eosinophils (%) (Auto) 2, Basophils (%) (Auto) 0, Neutrophils # (Auto) 7.6, Lymphocytes # (Auto) 2.2, Monocytes # (Auto) 0.9, Eosinophils # (Auto) 0.2, Basophils # (Auto) 0.0 MYKEL RODRIGUEZ DO Feb 20, 2019 3:45 pm
[2019-02-20 17:20] VITALS: BP 132/66
[2019-02-20] MEDS: POLYETHYLENE GLYCOL 17 GM (MIRALAX) PACK PO SCH (21:31)
[2019-02-20 23:52] VITALS: BP 135/75
--- NOTE | 2019-02-21 03:00 | NUR ---
pt resting with eyes closed, aroused per RN to taken to nsy, pt denies needs.
[2019-02-21] MEDS: IBUPROFEN 600 MG (MOTRIN) TAB PO SCH ×2 (05:56→11:34)
[2019-02-21] MEDS: ACETAMINOPHEN 500 MG TAB (TYLENOL) PO SCH (05:56)
[2019-02-21 05:57] VITALS: BP 140/90
[2019-02-21] MEDS ORDERED: ACET-77 PO (08:40)
[2019-02-21] MEDS ORDERED: DOCU100C37 PO (08:40)
[2019-02-21] MEDS ORDERED: FLUO20CA25 PO (08:40)
[2019-02-21] MEDS ORDERED: IBUP-844 PO (08:40)
[2019-02-21] MEDS ORDERED: OXC5T PO (08:40)
--- NOTE | 2019-02-21 08:40 | NUR ---
Dr Marcum here to see pt. DC orders rec'd.
--- NOTE | 2019-02-21 08:48 | Postpartum Progress Note ---
Post Op Post-operative Day #[] Subjective: Patient is without complaints. Ambulating, voiding after harrison removed. Tolerating a regular diet without nausea or vomiting. Normal lochia. Pain is well controlled with oral pain medications. Passing flatus. [] feeding. [] Objective: [] Physical Exam: General - Alert and oriented, no apparent distress Abdomen - Soft, appropriately tender to palpation, non-distended, fundus firm at umbilicus Incision - clean, dry and intact; no erythema or induration, no drainage Extremities - no edema, negative Ashely's bilaterally [] Assessment: [] post-operative day # [], status post []. Recovering well, hemodynamically stable Acute blood loss anemia [] Plan: Routine post-operative care. Encourage breast feeding. Encourage ambulation. VTE prophylaxis: SCDs. Ferrous sulfate supplementation. Plan for discharge [] Vitals - Labs Vital Signs - I&O Vital Signs Date Time Temp Pulse Resp B/P (MAP) Pulse Ox O2 Delivery O2 Flow Rate FiO2 02/21/19 05:57 98.0 100 18 140/90 (107) Room Air 02/20/19 23:52 99.0 90 18 135/75 (95) 96 Room Air 02/20/19 17:20 92 18 132/66 (88) 96 Room Air 02/20/19 12:00 97.1 95 18 125/86 (99) 97 Room Air l I & O 02/21/19 07:00 Intake Total 1972 ml Output Total 2800 ml Balance -828 ml MYKEL RODRIGUEZ DO Feb 21, 2019 08:48
[2019-02-21] MEDS: DOCUSATE SODIUM 100 MG (COLACE) CAP PO SCH (08:57)
[2019-02-21] MEDS: FLUoxetine HCL 20 MG (PROzac) CAP PO SCH (08:57)
[2019-02-21 08:59] VITALS: BP 133/60
--- NOTE | 2019-02-21 11:45 | NUR ---
Discharge instructions explained to pt and copy provided to pt. Narcotic script provided and pt notified of scripts available at [facility] pharmacy. Pt notified of follow up appts. Pt verbalizes understanding of teaching, and signs to verify. Denies questions or concerns at this time. Encouraged to call when ready for discharge for someone to accompany pt off unit.
--- NOTE | 2019-02-21 12:00 | NUR ---
Pt taken off unit via wheelchair accompanied by S.O., , and staff member to private vehicle. All personal belongings with pt. No s/s of distress noted.
--- NOTE | 2019-02-25 16:13 | Physician Query-Final Dx ---
Final Diagnosis Give Final Diagnosis Please give Final Diagnosis ONIEL DELUNA Feb 25, 2019 16:13
== END 2019-02-21 12:00 | disposition home or self-care (01) | DRG 787 ==
LOC: LDRP 06:00
PROVIDERS: ADMIT Obstetrics & Gynecology; ATTEND Obstetrics & Gynecology
PROC: 10D00Z1 Extraction of Products of Conception, Low, Open Approach (ICD-10-PCS; principal; 2019-02-19 07:21)
DX: O34.211 Maternal care for low transverse scar from previous cesarean delivery (principal); O90.81 Anemia of the puerperium; D62 Acute posthemorrhagic anemia; O99.213 Obesity complicating pregnancy, third trimester; E66.01 Morbid (severe) obesity due to excess calories; O99.613 Diseases of the digestive system complicating pregnancy, third trimester; K21.9 Gastro-esophageal reflux disease without esophagitis; Z3A.39 39 weeks gestation of pregnancy; Z37.0 Single live birth
CPT/HCPCS: 36415; 81000; 83033; 85025; 86850; 86900; 86901; 94664

== ENCOUNTER → 2021-09-15 | Outpatient (CLI) | payer BC ==
[~2021-09-15] MED LIST changes: +ACET-78 PO; -CITRIC ACID/SOB CIT (BICITRA) 30 ML UDC ONE; +DOCU100C37 PO; -FAMOTIDINE 20MG/2ML IV (PEPCID) ONE; +FLUO20CA48 PO; +IBUP-844 PO; -LACTATED RINGERS 1,000 ML IV ONE; -METOCLOPRAMIDE INJ 10 MG/2 ML (REGLAN) ONE; -OMEP20CA12 PO; +OMEP20CA18 PO; +OXC5T PO; +POTA-169 PO; -POTA20TA8 PO
== END ==
LOC: LABNPT 08:43
DX: Z20.822 Contact with and (suspected) exposure to COVID-19 (principal)
CPT/HCPCS: 87635

== ENCOUNTER → 2021-09-21 | Outpatient (CLI) | payer BC | LOC: LABNPT 08:28 | PROVIDERS: ATTEND Family Medicine | DX: J02.9 Acute pharyngitis, unspecified (principal); Z20.822 Contact with and (suspected) exposure to COVID-19 | CPT/HCPCS: 87635 ==

== ENCOUNTER 2022-09-04 14:59 | Emergency (ER) | payer BC ==
[~2022-09-04] VITALS: Ht 157 cm; Wt 98.0 kg
[~2022-09-04 14:59] MED LIST changes: +LABE200T10 PO; -LABE200T7 PO
--- NOTE | 2022-09-04 15:41 | ED EENT ---
History of Present Illness General Chief Complaint: Ear Problems Stated Complaint: LEFT EAR PAIN Nursing Triage Note: PT STATES LT EAR PAIN AND LT JAW, ROOF OF MOUTH RED BUT DENIES SORE THROAT Source: patient Exam Limitations: no limitations History of Present Illness Date Seen by Provider: Sep 04, 2022 Time Seen by Provider: 15:40 Initial Comments 32 y/o female presents this afternoon with c/o left ear pain and fullness. Symp toms x 1 day. Pt reports she has had some nasal congestion for the past several days as well. Denies fever, chills, headache, body aches, sinus pressure, ear drainage, hearing loss, swollen lymph nodes Timing/Duration: gradual Severity: mild Location: ear (L) Prearrival Treatment: no prearrival treatment Associated Symptoms: No change in hearing, No cough, No drooling, No ear drainage, No facial pain/swelling, No fever, No malaise; nasal congestion/drainage; No sinus infection, No sore throat, No tooth pain, No voice change Allergies and Home Medications Allergies Coded Allergies: No Known Drug Allergies (Unverified , 02/11/19) Patient Home Medication List Home Medication List Reviewed: Yes Acetaminophen (Acetaminophen) 500 Mg Tablet, 1,000 MG PO Q8HR Prescribed by: MYKEL RODRIGUEZ on 02/21/19 0840 Butalb/Acetaminophen/Caffeine (Snqfjt-Adicpzie-Uryv 50-300-40) 1 Each Capsule, (Reported) Entered as Reported by: NICHOLE LASSITER on 12/20/18 1219 Docusate Sodium (Docusate Sodium) 100 Mg Capsule, 100 MG PO BID Prescribed by: MYKEL RODRIGUEZ on 02/21/19 0840 Fluoxetine HCl (Fluoxetine HCl) 20 Mg Capsule, 20 MG PO DAILY Prescribed by: MYKEL RODRIGUEZ on 02/21/19 0840 Ibuprofen (Ibu) 600 Mg Tablet, 600 MG PO Q6HR Prescribed by: MYKEL RODRIGUEZ on 02/21/19 0840 Omeprazole (Omeprazole) 20 Mg Capsule.dr, 20 MG PO DAILY, (Reported) Entered as Reported by: NICHOLE LASSITER on 12/20/18 1220 Oxycodone Hcl (Oxycodone IR) 5 Mg Tab, 5 MG PO Q4HR PRN for severe pain Prescribed by: MYKEL RODRIGUEZ on 02/21/19 0840 Potassium Chloride (Klor-Con M20) 20 Meq Tab.er.prt, 20 MEQ PO BID, (Reported) Entered as Reported by: NICHOLE LASSITER on 12/20/18 1219 Vit W-Ca,Fe,FA(<1 mg) ( Vitamins) 1 Each Tablet, 1 EACH PO DAILY, (Reported) Entered as Reported by: KANE ELLIOTT on 02/11/19 1211 Review of Systems Review of Systems Constitutional: no symptoms reported Eyes: No Symptoms Reported Ears: Denies Dizziness; Pain; Denies Tinnitus, Denies Bloody Discharge, Denies Clear Discharge, Denies Purulent Discharge, Denies Serosanguinous Discharge, Denies Previous Injury Nose: denies clots; congestion; denies epistaxis, denies pain, denies bloody discharge, denies clear discharge, denies purulent discharge, denies serosanguinous discharge Mouth: no symptoms reported Throat: no symptoms reported Respiratory: no symptoms reported Cardiovascular: no symptoms reported Skin: no symptoms reported Neurological: No Symptoms Reported Hematologic/Lymphatic: No Symptoms Reported Immunological/Allergic: no symptoms reported Past Qbegucg-Jsdluv-Gndmbw Hx Patient Social History Tobacco Use?: No Use of E-Cig and/or Vaping dev: Yes E-Cig or Vaping type used: CBD Substance use?: No Alcohol Use?: No Immunizations Up To Date First/Initial COVID19 Vaccinat: 09/17/20 Second COVID19 Vaccination Major: 10/08/20 Third COVID19 Vaccination Date: 07/20/21 COVID19 Vaccine Coordinating Producer: Karisma Kidz Seasonal Allergies Seasonal Allergies: Yes Past Medical History Surgery/Hospitalization HX: 2 C SECTIONS Surgeries: Yes (WISDOM TEETH) Section Respiratory: No Cardiac: No Neurological: Yes Last Menstrual Period: Aug 21, 2022 Reproductive Disorders: No Female Reproductive Disorders: Denies, Menstrual Problems Sexually Transmitted Disease: No HIV/AIDS: No Genitourinary: Yes Kidney Stones Gastrointestinal: Yes Gastroesophageal Reflux Musculoskeletal: No Endocrine: Yes (Hypokalemia) HEENT: No Loss of Vision: Bilateral Hearing Impairment: Denies Cancer: No Psychosocial: No Integumentary: No Blood Disorders: No Adverse Reaction/Blood Tranf: No (N/A) Family Medical History FH: lung cancer paternal grandfather Jamie thyroiditis paternal grandmother No Pertinent Family Hx Physical Exam Vital Signs Vital Signs - First Documented 09/04/22 15:11 Temp 36.8 Pulse 78 Resp 20 B/P (MAP) 151/93 (112) Pulse Ox 98 Height, Weight, BMI Height: 5'2.00" Weight: 243lbs. 2.0oz. 110.826188yd; 39.00 BMI Method:Stated General Appearance: WD/WN, no apparent distress Eyes: bilateral eye normal inspection, bilateral eye PERRL, bilateral eye EOMI Ears: right ear TM normal; left ear other (retracted); bilateral ear auricle normal, bilateral ear canal normal Nose: other (nares congested) Mouth/Throat: normal mouth inspection Neck: non-tender, full range of motion, supple, normal inspection Respiratory: chest non-tender, lungs clear, normal breath sounds Neurologic/Psychiatric: alert, normal mood/affect, oriented x 3 Skin: normal color, warm/dry Progress/Results/Core Measures Results/Orders Vital Signs/I&O 09/04/22 15:11 Temp 36.8 Pulse 78 Resp 20 B/P (MAP) 151/93 (112) Pulse Ox 98 Blood Pressure Mean: 112 Departure Impression Primary Impression: Dysfunction of left eustachian tube Disposition: 01 HOME, SELF-CARE Condition: Stable Departure-Patient Inst. Decision time for Depature: 15:50 Referrals: STEVEN ROCHA DO (PCP/Family) Primary Care Physician Patient Instructions: Eustachian Tube Problems (DC) Add. Discharge Instructions: Sudafed every 4-6 hours as needed. Flonase 2 sprays each nostril daily. Tylenol 500mg every 4 hours as needed. Ibuprofen 600mg every 6 hours as needed. All discharge instructions reviewed with patient and/or family. Voiced understanding. RIMA ARIZA APRN Sep 04, 2022 15:40
[2022-09-04 16:20] VITALS: BP 151/93
== END 2022-09-04 16:20 | disposition home or self-care (01) ==
LOC: EDUNIT# 14:59 → ER 15:01
DX: H69.92 Unspecified Eustachian tube disorder, left ear (principal); F17.290 Nicotine dependence, other tobacco product, uncomplicated
CPT/HCPCS: 99281